=== PATIENT | male | born 1995 | race Caucasian/White ===

== ENCOUNTER 2016-12-29 17:34 | Emergency (ER) | payer BC ==
[2016-12-29] MEDS ORDERED: PROPARACAINE 0.5% 15 ML OPHT DROP RTEYE ONE (17:54)
[2016-12-29] MEDS ORDERED: FLUORESCEIN SODIUM 1 MG STRIP OP ONE (17:54)
--- NOTE | 2016-12-29 17:55 | EDPHY ---
H & P Time Seen by Provider: 12/29/16 17:38 HPI/ROS: CHIEF COMPLAINT: Hydrogen peroxide exposure HISTORY OF PRESENT ILLNESS: The patient is a 21-year-old man who comes to the emergency department by EMS complaining about exposure to his right eye. He thought that he might have thrush in his mouth and he tried to wash it out with a bottle of hydrogen peroxide. He got some into his right eye and is now irritated and red. He ran out into the street and began screaming until paramedics were called. He now feels embarrassed about this. States that his vision is intact. He does were contacts and is taking them out. He has not washed his eyes. REVIEW OF SYSTEMS: Constitutional: denies: chills, fever, recent illness, recent injury EENTM: See HPI Respiratory: denies: cough, shortness of breath Cardiac: denies: chest pain, irregular heart rate, lightheadedness, palpitations Gastrointestinal/Abdominal: denies: abdominal pain, diarrhea, nausea, vomiting, blood streaked stools Genitourinary: denies: dysuria, frequency, hematuria, pain Musculoskeletal: denies: joint pain, muscle pain Skin: denies: lesions, rash, jaundice, bruising Neurological: denies: headache, numbness, paresthesia, tingling, dizziness, weakness Hematologic/Lymphatic: denies: blood clots, easy bleeding, easy bruising Immunologic/allergic: denies: HIV/AIDS, transplant EXAM: GENERAL: Well-appearing, well-nourished and in no acute distress. HEAD: Atraumatic, normocephalic. EYES: Mild erythema to the right conjunctiva, no visible abrasion or ulceration when stain with floricine. Tympanic membranes normal, oral examination normal. ENT: TMs normal, nares patent, oropharynx clear without exudates. Moist mucous membranes. NECK: Normal range of motion, supple without lymphadenopathy or JVD. LUNGS: Breath sounds clear to auscultation bilaterally and equal. No wheezes rales or rhonchi. HEART: Regular rate and rhythm without murmurs, rubs or gallops. ABDOMEN: Soft, nontender, normoactive bowel sounds. No guarding, no rebound. No masses appreciated. BACK: No CVA tenderness, no spinal tenderness, step-offs or deformities EXTREMITIES: Normal range of motion, no pitting or edema. No clubbing or cyanosis. NEUROLOGICAL: Cranial nerves II through XII grossly intact. Normal speech, normal gait. 5/5 strength, normal movement in all extremities, normal sensation PSYCH: Normal mood, normal affect. SKIN: Warm, dry, normal turgor, no visible rashes or lesions. Source: Patient Exam Limitations: No limitations - Medical/Surgical History Hx Asthma: No Hx Chronic Respiratory Disease: No Hx Diabetes: No Hx Cardiac Disease: No Hx Renal Disease: No Hx Cirrhosis: No - Family History Significant Family History: No pertinent family hx - Social History Smoking Status: Current some day smoker Alcohol Use: Sober Drug Use: None Constitutional: Initial Vital Signs Temperature (C) 36.7 C 12/29/16 17:34 Heart Rate 124 H 12/29/16 17:34 Respiratory Rate 24 H 12/29/16 17:34 Blood Pressure 148/84 H 12/29/16 17:34 O2 Sat (%) 98 12/29/16 17:34 O2 Delivery Mode Room Air Allergies/Adverse Reactions: No Known Allergies Allergy (Verified 12/29/16 18:04) Home Medications: Medication Instructions Recorded Zoloft 100mg (*) 12/29/16 Medical Decision Making ED Course/Re-evaluation: I discussed the case with poison Control. Will irrigate the patient's eye and re-evaluate. His vision is currently intact. They do not think that it is a caustic agent but recommended these precautions. The patient is clearly unusual and likely has some psychiatric disorders however he denies suicidality or attempted self-harm. He denies continued to harm anyone else. He answers questions appropriately and is not intoxicated. 6:20 p.m. the patient tolerated irrigation. He continues to remain calm and acting appropriately. He is unusual but does not need to be hospitalized or placed on a hold. Declines further workup or testing at this time. We discussed indications for returning. 6:45 p.m. the patient's stepmother is here. I spoke with her. She states that Maxime has history of depression and takes Zoloft but does not usually act manic like this. He has only been on the Zoloft for 3 months. It is prescribed by his internal medicine physician. He has been referred to Psychology but has not yet followed up. I reiterated this referral. His mom is a psychologist. Do feel that the patient seems to be suffering from mild paranoia and possibly media but he is not need to be institutionalized. Outpatient follow-up is appropriate. He is very composed and intelligent and can answer questions appropriately. He also feels very anxious considering the ambulance and emergency type treatment he received today. He is eager to get home and feel more calm with his family. Differential Diagnosis: Partial list of the Differential diagnosis considered include but were not limited to; burn, conjunctivitis, corneal abrasion, thrush, anxiety and although unlikely based on the history and physical exam, I also considered psychosis, infection, head injury, substance abuse. - Data Points Medications Given: Discontinued Medications Fluorescein Sodium ([id number]) 1 mg OP EDNOW ONE Stop: 12/29/16 17:55 Last Admin: 12/29/16 18:03 Dose: 1 mg Proparacaine HCl (Alcaine 0.5%) 1 drops RTEYE ONCE ONE Stop: 12/29/16 17:55 Last Admin: 12/29/16 18:03 Dose: 1 drop Departure - Departure Disposition: Home, Routine, Self-Care Clinical Impression: Irritation of right eye, Anxiety Condition: Fair Instructions: Blurred Vision (ED), Anxiety (ED) Referrals: Bryanna Gordillo MD [Medical Doctor] - As per Instructions
[2016-12-29 18:10] VITALS: TEMP 98.1
[2016-12-29 19:06] VITALS: BP 149/59; PULSE 120; RESP 16; O2SAT 93
== END 2016-12-29 19:05 | disposition home or self-care (01) ==
LOC: EDUNIT#
DX: H57.8 Other specified disorders of eye and adnexa (principal); F41.9 Anxiety disorder, unspecified; F17.200 Nicotine dependence, unspecified, uncomplicated